=== PATIENT | female | born 1990 | race Caucasian/White ===

== ENCOUNTER 2019-02-13 20:48 | Emergency (ER) | payer BC ==
[2019-02-13] MEDS ORDERED: Albuterol/Ipratropium 3.0-0.5 MG/3 ML Neb Soln NEB ONE ×2 (20:51→21:40)
[2019-02-13] MEDS ORDERED: methylPREDNISolone Sodium Succinate 125 MG/2 ML SDV IM ONE (20:52)
[2019-02-13] MEDS ORDERED: Albuterol/Ipratropium 3.0-0.5 MG/3 ML Neb Soln ONE (20:54)
--- NOTE | 2019-02-13 20:54 | EDM.PDOC ---
<eKrmit Rendon O - Last Filed: 02/13/19 23:57> ED HPI GENERAL MEDICAL PROBLEM - General Stated Complaint: SOB Time Seen by Provider: 02/13/19 20:54 Source of Information: Reports: Patient History Limitations: Reports: Respiratory Distress - History of Present Illness INITIAL COMMENTS - FREE TEXT/NARRATIVE: Patient is a 28-year-old female presents ED complaining of a asthma attack. Patient states the asthma attack started earlier this afternoon after being exposed to her brother's dogs were known triggers for her. She has used her short acting rescue inhaler twice with no subcutaneous relief. Symptoms have progressed over the course of the afternoon. She's only able to speak in 1-2 words at this time. She complains of chest tightness short of breath with wheezing and cough. Cough is nonproductive. She has no chest pain. No pain to her lower extremities, swelling to lower extremities, and her history of PE. She has no history of being intubated. At no point did she ever required hospitalization. Patient denies any fever, nausea vomiting, sinus congestion, runny nose, sore throat, and or any additional complaints. She denies drug use. - Related Data Allergies Allergy/AdvReac Type Severity Reaction Status Date / Time No Known Allergies Allergy Verified 07/15/16 10:34 Home Meds: Home Meds Albuterol [Proventil HFA] 2 puff INH Q4H PRN 02/13/19 [History] Budesonide/Formoterol [Symbicort 160-4.5 MCG] 1 puff INH BID 02/13/19 [History] ED ROS GENERAL - Review of Systems Review Of Systems: ROS reveals no pertinent complaints other than HPI. ED EXAM, GENERAL - Physical Exam Exam: See Below Exam Limited By: Respiratory Distress General Appearance: Alert, WD/WN, Moderate Distress Eye Exam: Bilateral Eye: Normal Inspection Ears: Hearing Grossly Normal Nose: Normal Inspection Throat/Mouth: Normal Inspection, Normal Oropharynx, No Airway Compromise. No: Normal Voice (Speaking in 1-2 word sentences.) Head: Atraumatic, Normocephalic Neck: Normal Inspection, Supple, Non-Tender, Full Range of Motion Respiratory/Chest: Respiratory Distress, Decreased Breath Sounds, Wheezing, Accessory Muscle Use, Retractions, Prolonged Expiration. No: Crackles, Rales, Rhonchi, Stridor, Pleural Rub, Splinting Cardiovascular: Normal Peripheral Pulses, No Murmur, Tachycardia Peripheral Pulses: 2+: Radial (L) Extremities: Normal Inspection, Normal Range of Motion, Non-Tender. No: No Pedal Edema (With edema to left ankle chronic unchanged.) Neurological: Alert, Oriented, CN II-XII Intact, Normal Cognition, No Motor/ Sensory Deficits Psychiatric: Normal Affect, Normal Mood Skin Exam: Warm, Dry, Intact, Normal Color Course - Vital Signs Last Recorded V/S: Last Vital Signs Temp 99.4 F 02/13/19 21:00 Pulse 123 H 02/13/19 21:00 Resp 24 H 02/13/19 21:00 BP 157/92 H 02/13/19 21:00 Pulse Ox 92 L 02/14/19 01:36 - Orders/Labs/Meds Orders: Active Orders 24 hr Category Date Time Status EKG Documentation Completion [RC] ASDIRECTED Care 02/13/19 20:53 Active Peripheral IV Care [RC] . DIRECTED Care 02/13/19 22:19 Active RT Aerosol Therapy [RC] ASDIRECTED Care 02/13/19 20:52 Active RT Aerosol Therapy [RC] ASDIRECTED Care 02/13/19 21:41 Active RT Aerosol Therapy [RC] ASDIRECTED Care 02/14/19 01:29 Active RT Aerosol Therapy [RC] ASDIRECTED Care 02/14/19 01:30 Active Chest 1V Frontal [CR] Stat Exams 02/13/19 20:52 Taken Chest PE [Ang Chest] [CT] Stat Exams 02/14/19 00:19 Taken Peripheral IV Insertion Adult [OM.PC] Routine Oth 02/13/19 22:19 Ordered EKG 12 Lead [EK] Stat Ther 02/13/19 20:52 Ordered Labs: Laboratory Tests 02/13/19 02/13/19 02/13/19 Range/Units 23:45 23:45 23:45 WBC 18.18 H (3.98-10.04) K/mm3 RBC 4.83 (3.98-5.22) M/mm3 Hgb 13.6 (11.2-15.7) gm/L Hct 41.7 (34.1-44.9) % MCV 86.3 (79.4-94.8) fl MCH 28.2 (25.6-32.2) pg MCHC 32.6 (32.2-35.5) g/dl RDW Std Deviation 39.4 (36.4-46.3) fL Plt Count 309 (182-369) K/mm3 MPV 9.3 L (9.4-12.3) fl Neutrophils % (Manual) 96 H (40-60) % Band Neutrophils % 0 (0-10) % Lymphocytes % (Manual) 4 L (20-40) % Atypical Lymphs % 0 % Monocytes % (Manual) 0 L (2-10) % Eosinophils % (Manual) 0 L (0.7-5.8) % Basophils % (Manual) 0 L (0.1-1.2) Platelet Estimate Adequate Plt Morphology Comment Normal RBC Morph Comment Normal PT 9.9 (9.5-12.1) SECONDS INR < 0.93 APTT 26 (24-31) SECONDS D-Dimer, Quantitative (0.19-0.50) mg/L Sodium 140 (136-145) mEq/L Potassium 3.2 L (3.5-5.1) mEq/L Chloride 103 (98-107) mEq/L Carbon Dioxide 22 (21-32) mEq/L Anion Gap 18.2 H (5-15) BUN 12 (7-18) mg/dL Creatinine 0.9 (0.55-1.02) mg/dL Est Cr Clr Drug Dosing 68.04 mL/min Estimated GFR (MDRD) > 60 (>60) mL/min BUN/Creatinine Ratio 13.3 L (14-18) Glucose 168 H (74-106) mg/dL Calcium 9.4 (8.5-10.1) mg/dL Total Bilirubin 0.2 (0.2-1.0) mg/dL AST 19 (15-37) U/L ALT 33 (14-59) U/L Alkaline Phosphatase 53 (46-116) U/L Troponin I (0.00-0.056) ng/mL C-Reactive Protein 2.3 H* (<1.0) mg/dL Total Protein 7.7 (6.4-8.2) g/dl Albumin 3.8 (3.4-5.0) g/dl Globulin 3.9 gm/dL Albumin/Globulin Ratio 1.0 (1-2) HCG, Qual (NEGATIVE) 02/13/19 02/13/19 02/13/19 Range/Units 23:45 23:45 23:45 WBC (3.98-10.04) K/mm3 RBC (3.98-5.22) M/mm3 Hgb (11.2-15.7) gm/L Hct (34.1-44.9) % MCV (79.4-94.8) fl MCH (25.6-32.2) pg MCHC (32.2-35.5) g/dl RDW Std Deviation (36.4-46.3) fL Plt Count (182-369) K/mm3 MPV (9.4-12.3) fl Neutrophils % (Manual) (40-60) % Band Neutrophils % (0-10) % Lymphocytes % (Manual) (20-40) % Atypical Lymphs % % Monocytes % (Manual) (2-10) % Eosinophils % (Manual) (0.7-5.8) % Basophils % (Manual) (0.1-1.2) Platelet Estimate Plt Morphology Comment RBC Morph Comment PT (9.5-12.1) SECONDS INR APTT (24-31) SECONDS D-Dimer, Quantitative 0.72 H (0.19-0.50) mg/L Sodium (136-145) mEq/L Potassium (3.5-5.1) mEq/L Chloride (98-107) mEq/L Carbon Dioxide (21-32) mEq/L Anion Gap (5-15) BUN (7-18) mg/dL Creatinine (0.55-1.02) mg/dL Est Cr Clr Drug Dosing mL/min Estimated GFR (MDRD) (>60) mL/min BUN/Creatinine Ratio (14-18) Glucose (74-106) mg/dL Calcium (8.5-10.1) mg/dL Total Bilirubin (0.2-1.0) mg/dL AST (15-37) U/L ALT (14-59) U/L Alkaline Phosphatase (46-116) U/L Troponin I < 0.017 (0.00-0.056) ng/mL C-Reactive Protein (<1.0) mg/dL Total Protein (6.4-8.2) g/dl Albumin (3.4-5.0) g/dl Globulin gm/dL Albumin/Globulin Ratio (1-2) HCG, Qual Negative (NEGATIVE) Meds: Medications Discontinued Medications Generic Name Dose Route Start Last Admin Trade Name Freq PRN Reason Stop Dose Admin Albuterol 2.5 mg 02/14/19 01:29 02/14/19 01:34 Proventil Neb Soln NEB 02/14/19 01:30 2.5 mg ONETIME ONE Administration Albuterol 2.5 mg 02/14/19 01:30 02/14/19 01:51 Proventil Neb Soln [facility] 02/14/19 01:31 2.5 mg ONETIME ONE Administration Albuterol/Ipratropium 3 ml 02/13/19 20:51 02/13/19 20:56 Duoneb 3.0-0.5 Mg/3 Ml NEB 02/13/19 20:52 3 ml ONETIME ONE Administration Albuterol/Ipratropium Confirm 02/13/19 20:54 02/13/19 20:58 Duoneb 3.0-0.5 Mg/3 Ml Administered 02/13/19 20:55 Not Given Dose 3 ml .ROUTE .STK-MED ONE Albuterol/Ipratropium 3 ml 02/13/19 21:40 02/13/19 22:05 Duoneb 3.0-0.5 Mg/3 Ml NEB 02/13/19 21:41 3 ml ONETIME ONE Administration Magnesium Sulfate 2 gm/ Premix 50 mls @ 25 mls/hr 02/13/19 22:19 02/13/19 22: 42 IV 02/14/19 00:18 50 mls/hr ONETIME ONE Administration Iohexol 100 ml 02/14/19 00:34 02/14/19 00:50 Omnipaque-300 IVPUSH 02/14/19 00:35 100 ml ONETIME ONE Administration Methylprednisolone Sodium Succinate 125 mg 02/13/19 20:52 02/13/19 20:57 Solu-Medrol IM 02/13/19 20:53 125 mg ONETIME ONE Administration Sodium Chloride 10 ml 02/13/19 22:19 02/13/19 23:28 Saline Flush FLUSH 10 ml ASDIRECTED PRN Administration Keep Vein Open - Re-Assessments/Exams Free Text/Narrative Re-Assessment/Exam: Patient has a history of asthma with known trigger to dogs. Patient was exposed to her brother's dogs prior to onset of asthma attack. She has taken her of your own inhaler twice with no relief. Symptoms have progressed. She complains of shortness of breath, chest tightness, hemoptysis, and cough. She has no history of DVT or PE. She does have a IUD in place. Patient does not smoke either. EKG sinus tachycardia at a rate of 123 with normal [place] interval and QTc. X-ray of the chest reviewed with Dr. Mcgowan with no acute findings. Final impression is pending. 02/13/19 23:14 Patient's heart rate remains in the high teens. Her shortness of breath has drastically improved. O2 sats are stable. I still suspect the cause of the tachycardia is related to the medications she is taking. She appears to be more relaxed able to speak in clear sentences with no difficulty. With that being said I ordered some basic labs while the magnesium is being administered. I will hold off on obtain a d-dimer. I suspect the tachycardia is related to the administration of Proventil inhaler and also doing nebs. With that being said she does have a IUD in place ice or creates hormones put her at increased risk of developing a blood clot. She does not reveal any findings concerning for a DVT. There are no known risk factors for development of DVT at this point. Thus will monitor her heart rate and O2 sats. If heart rate normalizes no further tests are required. If not we'll go ahead and obtained a d-dimer. 02/13/19 23:44 patient resting comfortably in bed. O2 sats remains 8990% on room air. Heart rate fluctuates from 114/120. She states she feels much better. I have elected to go ahead and obtain a d-dimer. Departure - Departure Disposition: Home, Self-Care 01 Clinical Impression: Exacerbation of asthma Qualifiers: Asthma severity: moderate Asthma persistence: unspecified Qualified Code(s): J45.901 - Unspecified asthma with (acute) exacerbation - Discharge Information Instructions: Asthma, Adult, [id number] Referrals: Mamta Delarosa PA-C [Primary Care Provider] - Forms: ED Department Discharge Additional Instructions: Rest, drink plenty of water to maintain hydration, continue albuterol nebs every 4-6 hours as needed for further wheezing or difficulty breathing. As this gets better then go to every 6-8 hours and thereafter as needed. Follow-up clinic as needed if not back to normal within 1-2 days as expected, return to ED as needed if symptoms worsening in any way. - My Orders Last 24 Hours: My Active Orders 02/14/19 01:29 RT Aerosol Therapy [RC] ASDIRECTED 02/14/19 01:30 RT Aerosol Therapy [RC] ASDIRECTED - Assessment/Plan Last 24 Hours: My Active Orders 02/14/19 01:29 RT Aerosol Therapy [RC] ASDIRECTED 02/14/19 01:30 RT Aerosol Therapy [RC] ASDIRECTED <Ricardo Mcgowan L - Last Filed: 02/14/19 02:09> Course - Re-Assessments/Exams Free Text/Narrative Re-Assessment/Exam: 02/14/19 02:07 Have assumed care from BELEN Swift at end of his shift. I agree with his hx and exam as documented. She was resting and breathing comfortably at time of my exam about 30 minutes ago. O2 sats are running 93-94% room air. This was off oxygen. CT pulmonary angiogram results are back and that study was normal with no evidence for PE or other acute abnormality. Her wheezing at this time is gone, she is breathing and moving air comfortably. She still does have prolonged expiration with forced fast expiration. We did do one further albuterol neb prior to discharge. She does have a nebulizer at home, will use that for the next few days as needed. Discharge instructions as documented. Departure - Departure Time of Disposition: 01:40 Condition: Fair
[2019-02-13] MEDS ORDERED: Magnesium Sulfate/Water 2 GM in Premix Bag 1 BAG IV ONE (22:19)
[2019-02-13] MEDS ORDERED: Sodium Chloride 0.9% 10 ML Syringe FLUSH PRN (22:19)
[2019-02-14] MEDS ORDERED: Iohexol 647 MG/ML 100 ML Bottle IVPUSH ONE (00:34)
[2019-02-14] MEDS ORDERED: Albuterol 0.083% 2.5 MG/3 ML Neb Soln NEB ONE ×2 (01:29→01:30)
--- NOTE | 2019-02-14 10:15 | CT ---
CT chest Technique: Multiple axial sections through the chest were obtained. Intravenous contrast was utilized. Study has been performed as a pulmonary angiogram protocol. Comparison: Prior chest x-ray performed earlier on same day (9:10 PM) Findings: Pulmonary arteries are moderately well opacified. No filling defects are seen to indicate pulmonary embolism. Visualized mediastinum and hilar regions show no adenopathy or mass. No pericardial thickening is seen. Small portion of the visualized upper abdominal structures are within normal limits. Lungs are clear with no acute parenchymal change. No pleural effusions or pneumothorax is appreciated. Bone window settings were reviewed which appear within normal limits for the patient's age. Impression: 1. No findings of pulmonary embolism. Nothing acute is appreciated on CT study of the chest performed as a pulmonary angiogram protocol. Diagnostic code #1 I agree with preliminary report from [facility], finalized on 02/14/19, 1:59 AM Central Time
--- NOTE | 2019-02-14 10:16 | CR ---
Chest: Portable view of the chest was obtained. Comparison: No prior chest x-ray. Heart size and mediastinum are normal. Lungs are clear. Bony structures are unremarkable. Impression: 1. Nothing acute is appreciated on portable chest x-ray. Diagnostic code #1
== END 2019-02-14 01:54 | disposition home or self-care (01) ==
LOC: JD.ED 20:48
DX: J45.901 Unspecified asthma with (acute) exacerbation (principal); Z79.899 Other long term (current) drug therapy
CPT/HCPCS: 36415; 71045; 71275; 80053; 84484; 84703; 85007; 85027; 85379; 85610; 85730; 86140; 93005; 94640; 96365; 96375; 99285; J2930; J3475; Q9967; 99284; J7620-GY

== ENCOUNTER 2019-06-05 12:59 | Emergency (ER) | payer BC ==
--- NOTE | 2019-06-05 13:20 | EDM.PDOC ---
ED HPI GENERAL MEDICAL PROBLEM - General Chief Complaint: Chest Pain Stated Complaint: CHEST PAIN Time Seen by Provider: 06/05/19 13:00 Source of Information: Reports: Patient History Limitations: Reports: No Limitations - History of Present Illness INITIAL COMMENTS - FREE TEXT/NARRATIVE: 29-year-old female presents for evaluation and treatment of chest pain. Patient reports chest pain started suddenly while at congregation around 10:30 this morning. Reports that is primarily located to the left side of her sternum. She has appreciated that bending over seems to make the pain worse. Improves with lying down. States that she became concerned when the pain became more intense and more frequent. She states is quick sharp pain that last maybe a few seconds. Reports associated symptoms of diaphoresis. No fevers, chills, shortness of breath or any syncope. She denies any recent trauma to the chest. She denies any recent cough or cold symptoms. She states that she has been under increased stress recently and has smoked a couple cigarettes. Traveled to [place] last week. Last menstrual period May 22. She is not on any oral contraceptives. Primary care provider is Mamta Delarosa. Patient reports that she's had swelling in her left foot present for about 5 years. She has been seen by several different providers including podiatry about this and no etiology for her swelling has been discovered. No pain in her legs. Onset: Today, Sudden Duration: Getting Worse, Intermittent Location: Reports: Chest Upper Chest Pain Score (Numeric/FACES): 2 - Related Data Allergies Allergy/AdvReac Type Severity Reaction Status Date / Time No Known Allergies Allergy Verified 07/15/16 10:34 Home Meds: Home Meds Albuterol [Proventil HFA] 2 puff INH Q4H PRN 02/13/19 [History] Budesonide/Formoterol [Symbicort 160-4.5 MCG] 1 puff INH BID 02/13/19 [History] Past Medical History Respiratory History: Reports: Asthma - Past Surgical History HEENT Surgical History: Reports: Tonsillectomy Female Surgical History: Reports: Section Social & Family History - Family History Family Medical History: Noncontributory ED ROS GENERAL - Review of Systems Review Of Systems: See Below Constitutional: Reports: Diaphoresis. Denies: Fever, Chills Respiratory: Denies: Shortness of Breath, Cough Cardiovascular: Reports: Chest Pain, Edema (left foot ). Denies: Lightheadedness, Syncope GI/Abdominal: Denies: Nausea, Vomiting Musculoskeletal: Denies: Leg Pain Neurological: Denies: Syncope ED EXAM, GENERAL - Physical Exam Exam: See Below Exam Limited By: No Limitations General Appearance: Alert, WD/WN, No Apparent Distress, Anxious, Obese Ears: Normal External Exam, Normal Canal, Hearing Grossly Normal, Normal TMs Nose: Normal Inspection Throat/Mouth: Normal Inspection, Normal Lips, Normal Oropharynx, Normal Voice, No Airway Compromise Respiratory/Chest: No Respiratory Distress, Lungs Clear, Normal Breath Sounds Cardiovascular: Normal Peripheral Pulses, Regular Rate, Rhythm, No Murmur, Other (chest tender to palpation to the left costosternal junction around rib 4& 5) Peripheral Pulses: 2+: Radial (L), Radial (R), Dorsalis Pedis (L), Dorsalis Pedis (R) GI/Abdominal: Normal Bowel Sounds, Soft, Non-Tender Extremities: Normal Capillary Refill, Other (left foot has nonpitting edema about 2+) Neurological: Alert, Oriented, Normal Cognition Psychiatric: Normal Affect, Normal Mood Skin Exam: Warm, Dry, Normal Color EKG INTERPRETATION EKG Date: 06/05/19 Time: 13:25 Rhythm: NSR Rate (Beats/Min): 60 [place]: Normal P-Wave: Present QRS: Normal ST-T: Normal QT: Normal EKG Interpretation Comments: NSR at 60 bpm. No acute changes. Reviewed by myself and Dr. cuevas. Course - Vital Signs Last Recorded V/S: Last Vital Signs Temp 98 F 06/05/19 13:03 Pulse 72 06/05/19 13:03 Resp 16 06/05/19 13:03 BP 141/94 H 06/05/19 13:03 Pulse Ox 99 06/05/19 13:03 - Orders/Labs/Meds Labs: Laboratory Tests 06/05/19 06/05/19 06/05/19 Range/Units 13:32 13:32 13:32 WBC 9.24 (3.98-10.04) K/mm3 RBC 4.89 (3.98-5.22) M/mm3 Hgb 14.1 (11.2-15.7) gm/dl Hct 42.3 (34.1-44.9) % MCV 86.5 (79.4-94.8) fl MCH 28.8 (25.6-32.2) pg MCHC 33.3 (32.2-35.5) g/dl RDW Std Deviation 40.5 (36.4-46.3) fL Plt Count 326 (182-369) K/mm3 MPV 9.3 L (9.4-12.3) fl Neut % (Auto) 54.2 (34.0-71.1) % Lymph % (Auto) 32.8 (19.3-51.7) % [place] % (Auto) 8.1 (4.7-12.5) % Eos % (Auto) 4.3 (0.7-5.8) Baso % (Auto) 0.5 (0.1-1.2) % Neut # (Auto) 5.00 (1.56-6.13) K/mm3 Lymph # (Auto) 3.03 (1.18-3.74) K/mm3 [place] # (Auto) 0.75 H (0.24-0.36) K/mm3 Eos # (Auto) 0.40 H (0.04-0.36) K/mm3 Baso # (Auto) 0.05 (0.01-0.08) K/mm3 D-Dimer, Quantitative 0.20 (0.19-0.50) mg/L Sodium 139 (136-145) mEq/L Potassium 3.6 (3.5-5.1) mEq/L Chloride 103 (98-107) mEq/L Carbon Dioxide 26 (21-32) mEq/L Anion Gap 13.6 (5-15) BUN 17 (7-18) mg/dL Creatinine 0.8 (0.55-1.02) mg/dL Est Cr Clr Drug Dosing 75.87 mL/min Estimated GFR (MDRD) > 60 (>60) mL/min BUN/Creatinine Ratio 21.3 H (14-18) Glucose 95 (74-106) mg/dL Calcium 9.3 (8.5-10.1) mg/dL Total Bilirubin 0.3 (0.2-1.0) mg/dL AST 20 (15-37) U/L ALT 42 (14-59) U/L Alkaline Phosphatase 56 (46-116) U/L Troponin I < 0.017 (0.00-0.056) ng/mL C-Reactive Protein < 0.2 (<1.0) mg/dL Total Protein 7.1 (6.4-8.2) g/dl Albumin 3.8 (3.4-5.0) g/dl Globulin 3.3 gm/dL Albumin/Globulin Ratio 1.2 (1-2) HCG, Qual (NEGATIVE) 06/05/19 Range/Units 13:32 WBC (3.98-10.04) K/mm3 RBC (3.98-5.22) M/mm3 Hgb (11.2-15.7) gm/dl Hct (34.1-44.9) % MCV (79.4-94.8) fl MCH (25.6-32.2) pg MCHC (32.2-35.5) g/dl RDW Std Deviation (36.4-46.3) fL Plt Count (182-369) K/mm3 MPV (9.4-12.3) fl Neut % (Auto) (34.0-71.1) % Lymph % (Auto) (19.3-51.7) % [place] % (Auto) (4.7-12.5) % Eos % (Auto) (0.7-5.8) Baso % (Auto) (0.1-1.2) % Neut # (Auto) (1.56-6.13) K/mm3 Lymph # (Auto) (1.18-3.74) K/mm3 [place] # (Auto) (0.24-0.36) K/mm3 Eos # (Auto) (0.04-0.36) K/mm3 Baso # (Auto) (0.01-0.08) K/mm3 D-Dimer, Quantitative (0.19-0.50) mg/L Sodium (136-145) mEq/L Potassium (3.5-5.1) mEq/L Chloride (98-107) mEq/L Carbon Dioxide (21-32) mEq/L Anion Gap (5-15) BUN (7-18) mg/dL Creatinine (0.55-1.02) mg/dL Est Cr Clr Drug Dosing mL/min Estimated GFR (MDRD) (>60) mL/min BUN/Creatinine Ratio (14-18) Glucose (74-106) mg/dL Calcium (8.5-10.1) mg/dL Total Bilirubin (0.2-1.0) mg/dL AST (15-37) U/L ALT (14-59) U/L Alkaline Phosphatase (46-116) U/L Troponin I (0.00-0.056) ng/mL C-Reactive Protein (<1.0) mg/dL Total Protein (6.4-8.2) g/dl Albumin (3.4-5.0) g/dl Globulin gm/dL Albumin/Globulin Ratio (1-2) HCG, Qual Negative (NEGATIVE) - Radiology Interpretation Free Text/Narrative:: Chest x-ray shows no acute intrathoracic process. formal radiology read pending. - Re-Assessments/Exams Free Text/Narrative Re-Assessment/Exam: 06/05/19 14:44 I reviewed the EKG and imaging with the patient. We will discharge her home. Exam and history are consistent with chest wall discomfort. Discharge instructions as documented. Departure - Departure Time of Disposition: 14:44 Disposition: Home, Self-Care 01 Reason for Transfer *Q: Other Condition: Good Clinical Impression: Chest wall discomfort Instructions: Chest Wall Pain, [id number] Referrals: Mamta Delarosa PA-C [Primary Care Provider] - Forms: ED Department Discharge Additional Instructions: OTC tylenol or motrin as needed for discomfort. May try a topical product such as icy hot or bengay. Follow-up with PCP if not much better within one week. Consider seeing a chiropractor. Please return to the ER should your symptoms change or worsen.
--- NOTE | 2019-06-06 07:10 | CR ---
Chest: Two views of the chest were obtained. Comparison: Prior chest x-ray of 02/13/19. Heart size and mediastinum are normal. Lungs are clear. Bony structures are unremarkable. Impression: 1. Nothing acute is seen on two-view chest x-ray. Diagnostic code #1
== END 2019-06-05 15:07 | disposition home or self-care (01) ==
LOC: JD.ED 12:59
DX: R07.89 Other chest pain (principal); J45.909 Unspecified asthma, uncomplicated; Z79.899 Other long term (current) drug therapy
CPT/HCPCS: 36415; 71046; 71046-26; 80053; 84484; 84703; 85025; 85379; 86140; 93005; 99285-25

== ENCOUNTER 2021-07-03 06:06 | Emergency (ER) | payer BC ==
[2021-07-03] MEDS ORDERED: Acetaminophen 325 MG Tab PO ONE (06:23)
[2021-07-03] MEDS ORDERED: Ketorolac 15 MG/ML SDV IM ONE (06:23)
--- NOTE | 2021-07-03 06:33 | EDM.PDOC ---
ED HPI GENERAL MEDICAL PROBLEM - General Chief Complaint: Chest Pain Stated Complaint: BACK PAIN CHEST PAIN DIZZY Time Seen by Provider: 07/03/21 06:29 Source of Information: Reports: Patient History Limitations: Reports: No Limitations - History of Present Illness INITIAL COMMENTS - FREE TEXT/NARRATIVE: Patient is a 31-year-old female presenting with a chief complaint of chest and back pain. Patient has no significant past medical history besides asthma. Patient states that yesterday, she noticed some small amount of back pain in her midthoracic area. Did not think much of it. Tonight, she woke around 4 AM with significant amount of pain in her back. This pain radiated to the front. She reports feeling dizzy and thought she might pass out. Reports pain was extre ryan intense but after taking Aleve feels somewhat better. Reports sharp pain. Otherwise, patient denies any recent travel, recent surgeries, prior DVT/PE, calf pain/calf tenderness. Patient states her left foot has been swollen for 7 years. She states her doctor describes it as a "medical mystery". 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: - Past Surgical History HEENT Surgical History: Reports: Tonsillectomy Female Surgical History: Reports: Section Social & Family History - Family History Family Medical History: No Pertinent Family History - Tobacco Use Tobacco Use Status *Q: Never Tobacco User - Caffeine Use Caffeine Use: Reports: Coffee, Soda, Tea ED ROS GENERAL - Review of Systems Review Of Systems: See Below Free Text/Narrative/Comment: In addition to that documented in the HPI above, the additional ROS was obtained: Constitutional: Denies fevers or chills Eyes: Denies vision changes ENMT: Denies sore throat CV: Per HPI Resp: Denies SOB GI: Denies vomiting or diarrhea : Denies painful urination MSK: Denies recent trauma Skin: Denies new rashes Neuro: Denies new numbness or tingling or weakness Endocrine: Denies unexpected weight loss Heme: Denies bleeding disorders ED EXAM, GENERAL - Physical Exam Exam: See Below Free Text/Narrative:: I have reviewed the triage vital signs Const: Well nourished, well developed, appears stated age Eyes: Pupils Equal and reactive to light bilaterally, no conjunctival injection HENT: No signs of trauma or swelling, Neck supple without meningismus CV: Regular Rate Rhythm, Warm, well-perfused extremities RESP: Unlabored respiratory effort GI: soft, non-tender, non-distended, no masses MSK: No gross deformities appreciated. No midline spinal tenderness. Skin: Warm, dry. 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 Sensation and motor function of extremi ties grossly intact. Psych: Appropriate mood and affect. #1 Interpretation EKG Date: 07/03/21 Time: 06:47 Rhythm: NSR Rate (Beats/Min): 615 [place]: Normal P-Wave: Present QRS: Normal ST-T: Normal QT: Normal Comparison: NA - No Prior EKG EKG Interpretation Comments: Normal EKG Course - Vital Signs Last Recorded V/S: Last Vital Signs Temp 36.3 C 07/03/21 06:15 Pulse 76 07/03/21 06:15 Resp 14 07/03/21 06:15 BP 127/90 07/03/21 06:15 Pulse Ox 100 07/03/21 06:15 - Orders/Labs/Meds Meds: Medications Discontinued Medications Generic Name Dose Route Start Last Admin Trade Name Myrna PRN Reason Stop Dose Admin Acetaminophen 650 mg 07/03/21 06:23 07/03/21 06:33 Acetaminophen 325 Mg Tab PO 07/03/21 06:24 650 mg NOW ONE Administration Ketorolac Tromethamine 30 mg 07/03/21 06:23 07/03/21 06:33 Ketorolac 15 Mg/Ml Sdv IM 07/03/21 06:24 Not Given ONETIME ONE Departure - Departure Time of Disposition: 07:04 Disposition: Home, Self-Care 01 Clinical Impression: Back pain, Pre-syncope Instructions: Acute Back Pain, Adult Referrals: Mamta Delarosa PA-C [Primary Care Provider] - Forms: ED Department Discharge Sepsis Event Note (ED) - Evaluation Sepsis Screening Result: No Definite Risk - Assessment/Plan Assessment:: Patient is a 31-year-old female presented to the emergency room with back and chest pain. Patient demonstrates entirely normal vital signs including oxygenation of 100% on room air. EKG demonstrates normal sinus rhythm without evidence of ischemic changes or arrhythmias. Differential diagnosis considered for this patient include ACS, pulmonary embolism, musculoskeletal strain. ACS unlikely given patient age, history and risk factors. PE is also unlikely given O2 levels, and nature of symptoms and remainder of history/exam. Chest x-ray showed no significant abnormalities based on my interpretation. I did offer patient Holter monitor as she was concerned about the possibility of passing out. We discussed possible etiologies. However, I think at this point patient does not require admission for presyncope. This can be followed up as an outpatient. Patient states she does have a follow-up visit with her primary care physician later this week. Believe this is appropriate for further work- up. Return precautions were discussed as usual. Patient agrees with plan of care. All questions were addressed and answered..
--- NOTE | 2021-07-03 07:21 | CR ---
Chest: 2 views of the chest were obtained. Comparison: Prior chest x-ray of 06/05/19. Heart size and mediastinum are normal. Lungs are clear with no acute parenchymal change. Bony structures appear within normal limits. Impression: 1. Nothing acute is seen on 2 view chest x-ray. Diagnostic code #1
== END 2021-07-03 07:23 | disposition home or self-care (01) ==
LOC: JD.ED 06:06
DX: R55 Syncope and collapse (principal); M54.6 Pain in thoracic spine; J45.909 Unspecified asthma, uncomplicated; Z79.899 Other long term (current) drug therapy
CPT/HCPCS: 71046; 93005; 93225; 93226; 99285; A9270

== ENCOUNTER 2023-02-21 18:13 | Emergency (ER) | payer BC ==
[2023-02-21] MEDS ORDERED: Rabies Immune Globulin/PF (HyperRAB) 300 UNIT/ML 5 ML SDV IM ONE (19:11)
[2023-02-21] MEDS ORDERED: Amoxicillin/Clavulanate K 875-125 MG Tab PO ONE (19:15)
== END 2023-02-21 20:55 | disposition home or self-care (01) ==
LOC: JD.ED 18:13
DX: S61.452A Open bite of left hand, initial encounter (principal); J45.909 Unspecified asthma, uncomplicated; Z23 Encounter for immunization; Z86.16 Personal history of COVID-19; Z79.899 Other long term (current) drug therapy; Z98.890 Other specified postprocedural states; W54.0XXA Bitten by dog, initial encounter
CPT/HCPCS: 90375; 96372; 99283; A9270